=== PATIENT | male | born 1975 | race Caucasian/White ===

== ENCOUNTER 2022-07-28 11:31 | Emergency (ER) | payer BC ==
[2022-07-28 11:37] VITALS: BP 154/90; PULSE 95; RESP 16; TEMP 98.6
--- NOTE | 2022-07-28 12:26 | XR ---
EXAMINATION TYPE: XR knee complete RT DATE OF EXAM: 07/28/2022 CLINICAL HISTORY: pain TECHNIQUE: Three views of the right knee are obtained. COMPARISON: None. FINDINGS: There is no acute fracture/dislocation. The tri-compartment joint spaces appear within no rmal limits. There appears to be edema of the suprapatellar soft tissues. Correlate for underlying in fection. No evidence for osteomyelitis. IMPRESSION: There is no acute fracture or dislocation.ICD 10 NO FRACTURE, INITIAL EVALUATION
--- NOTE | 2022-07-28 12:41 | ED ---
Skin/Abscess/FB HPI - General Chief complaint: Extremity Problem,Nontraumatic Stated complaint: rash Time Seen by Provider: 07/28/22 11:54 Source: patient, RN notes reviewed Mode of arrival: ambulatory Limitations: no limitations - History of Present Illness Initial comments: This is a 47-year-old male who presents to the emergency department for a possi ble infection to the right knee. States that over the last 3-4 days, he has had increasing redness and swelling to the right knee. Earlier this year, he was bitten by a brown recluse spider on the left arm and states that the infection looked very similar. He was given an antibiotic by urgent care that was not effective. He then followed up with his PCP and was given two antibiotics, one of which was dapsone, however he cannot recall the second one. This regimen cured the rash very quickly. He does note that he had left over prednisone at home that he has been taking for 3 days, however the rash has not gotten any better. - Related Data Previous Rx's Medication Instructions Recorded Cephalexin [Keflex] 500 mg PO Q6HR 7 Days #28 cap 07/28/22 Dapsone 100 mg PO BID 5 Days #10 tablet 07/28/22 Allergies Allergy/AdvReac Type Severity Reaction Status Date / Time Fish Containing Products Allergy Unknown Verified 07/28/22 11:37 Review of Systems ROS Statement: Those systems with pertinent positive or pertinent negative responses have been documented in the HPI. ROS Other: All systems not noted in ROS Statement are negative. Constitutional: Denies: fever, chills ENT: Denies: ear pain, throat pain Respiratory: Denies: cough, dyspnea Cardiovascular: Denies: chest pain Musculoskeletal: Denies: back pain Skin: Reports: rash Neurological: Denies: headache Past Medical History Past Medical History: No Reported History History of Any Multi-Drug Resistant Organisms: None Reported Past Surgical History: Orthopedic Surgery Additional Past Surgical History / Comment(s): shoulder surgery Past Psychological History: No Psychological Hx Reported Smoking Status: Current every day smoker Past Alcohol Use History: Occasional Past Drug Use History: None Reported General Exam Limitations: no limitations General appearance: alert, in no apparent distress Head exam: Present: atraumatic, normocephalic, normal inspection Respiratory exam: Present: normal lung sounds bilaterally. Absent: respiratory distress, wheezes, rales, rhonchi, stridor Cardiovascular Exam: Present: regular rate, normal rhythm, normal heart sounds. Absent: systolic murmur, diastolic murmur, rubs, gallop, clicks Neurological exam: Present: alert, oriented X3, CN II-XII intact Psychiatric exam: Present: normal affect, normal mood Skin exam: Present: other (Erytherma with overlying crusting and swelling over the right patella. Erythema is spreading both distally and proximally. ) Course Vital Signs 07/28/22 11:34 Temperature 98.6 F Pulse Rate 95 Respiratory 16 Rate Blood Pressure 154/90 O2 Sat by Pulse 99 Oximetry Medical Decision Making - Medical Decision Making This is a 47-year-old male who presents to the emergency department for cellulitis. X-ray obtained revealing edema over the suprapatellar soft tissues. Given that he had no improvement with Prednisone, it makes a dermatitis less likely. Because he noted a similar rash from a brown recluse and had improvement with Dapsone, will put the patient on a course of keflex and Dapsone. He will follow up with his primary care provider to reevaluate the rash next week. Return precautions reviewed in depth, the patient is instructed to return to the emergency department with any new, worsening, or concerning symptoms. Patient verbalized understanding. This case was discussed in detail with the attending ED physician. Presentation, findings, and treatment plan discussed in detail as well. - Radiology Data Radiology results: report reviewed, image reviewed Disposition Clinical Impression: Cellulitis Disposition: HOME SELF-CARE Instructions (If sedation given, give patient instructions): Cellulitis (ED) Additional Instructions: Return to the emergency department with any new, worsening, or concerning symptoms. Take the Keflex antibiotic as prescribed for 7 days and Dapsone for 5 days. The dapsone is what you took last time when you had the similar symptoms. Follow-up with your primary care provider next week to reevaluate symptoms. Prescriptions: Dapsone 100 mg PO BID 5 Days #10 tablet Cephalexin [Keflex] 500 mg PO Q6HR 7 Days #28 cap Is patient prescribed a controlled substance at d/c from ED?: No Referrals: Sandro Ferro MD [Primary Care Provider] - 1-2 days
== END 2022-07-28 13:07 | disposition home or self-care (01) ==
LOC: EC 11:31
DX: L03.115 Cellulitis of right lower limb (principal); Z91.013 Allergy to seafood; F17.200 Nicotine dependence, unspecified, uncomplicated
CPT/HCPCS: 99283